=== PATIENT | female | born 1985 | race Caucasian/White ===

== ENCOUNTER 2020-02-07 17:44 | Observation (INO) | payer OTHER ==
[~2020-02-07] VITALS: Ht 160 cm; Wt 78.5 kg
[2020-02-07 18:08] VITALS: BP 113/73
[2020-02-07] MEDS ORDERED: METF-961 PO (18:15)
[2020-02-07] MEDS ORDERED: PREN1TAB80 PO (18:15)
[2020-02-07 19:12] LABS: GLUCOMETER DEV NAME(LOC) 4S.; GLUCOSE,POINT OF CARE 115 MG/DL (70-110)
== END 2020-02-07 19:45 | disposition home or self-care (01) ==
LOC: 4S 17:44
PROVIDERS: ADMIT Obstetrics & Gynecology; ATTEND Obstetrics & Gynecology
DX: O36.8130 Decreased fetal movements, third trimester, not applicable or unspecified (principal); Z3A.35 35 weeks gestation of pregnancy
CPT/HCPCS: 59025; 99219

== ENCOUNTER 2020-03-02 14:00 | Inpatient (IN) | payer OTHER ==
[~2020-03-02] VITALS: Ht 160 cm; Wt 78.9 kg
[~2020-03-02 14:00] MED LIST: 0.9% SODIUM CHLORIDE 10 ML VIAL IVP ONE; EPHEDrine SULFATE 50 MG/ML VIAL IM ONE; FentaNYL CITRATE-PF 100 MCG/2 ML VIAL IVP ONE; KETOROLAC TROMETHAMINE 60 MG/2 ML VIAL IM ONE; METF-961 PO; MORPHINE SULFATE/PF 0.5 MG/ML 10 ML AMP IVP ONE; ONDANSETRON HCL 4 MG/2 ML VIAL IVP ONE; OXYTOCIN 10 UNITS/ML VIAL IM ONE; PREN1TAB80 PO
[2020-03-02] MEDS ORDERED: METF-960 PO (14:07)
[2020-03-02] MEDS ORDERED: CITRIC ACID/SODIUM CITRATE 30 ML SOLUTION UDCUP PO ONE (14:15)
[2020-03-02] MEDS ORDERED: RINGERS SOLUTION,LACTATED 1,000 ML IV ONE (14:15)
[2020-03-02] MEDS ORDERED: METOCLOPRAMIDE HCL 5 MG/ML 2 ML VIAL IVP ONE (14:15)
[2020-03-02 14:29] VITALS: BP 124/81
[2020-03-02 15:12] LABS: COVID AG,FIA SOURCE NASOPHARYNGEAL
[2020-03-02 15:14] LABS: BASOPHILS % (AUTO) 0.6 % (0.0-2.0); EOSINOPHILS % (AUTO) 0.5 % (1.0-6.0); HEMATOCRIT 36.3 % (36-46); LYMPHOCYTES # (AUTO) 1.5 K/uL (1.0-4.8); LYMPHOCYTES % (AUTO) 18.8 % (22.0-44.0); MEAN CORPUSCULAR HEMOGLOBIN 28.8 pg (26.0-34.0); MEAN CORPUSCULAR HGB CONC 33.1 G/dL (31.0-37.0); MEAN CORPUSCULAR VOLUME 87 fL (80-100); MONOCYTES # (AUTO) 0.7 K/uL (0.1-1.0); NEUTROPHILS # (AUTO) 5.9 K/uL (1.8-7.7); NEUTROPHILS % (AUTO) 72.1 % (40.0-70.0); PLATELET COUNT (AUTO) 184 K/uL (150-450); RED BLOOD CELL COUNT(AUTO) 4.17 MIL/uL (4.00-5.20); RED CELL DISTRIBUTION WIDTH 14.1 % (11.5-14.5)
[2020-03-02] MEDS ORDERED: FentaNYL CITRATE-PF 100 MCG/2 ML VIAL IVP PRN ×2 (17:15→18:30)
[2020-03-02] MEDS ORDERED: MEPERIDINE-PF 25 MG/ML VIAL IVP PRN (17:15)
[2020-03-02] MEDS ORDERED: HYDROmorphone 2 MG/ML SYRINGE IVP PRN (17:15)
[2020-03-02] MEDS ORDERED: GUM MASTIC/STORAX/MSAL/ALCOHOL LIQUID 0.67 ML VIAL TP ONE (17:25)
[2020-03-02] MEDS ORDERED: MORPHINE SULFATE 10 MG/ML SYRINGE IVP PRN (18:30)
[2020-03-02] MEDS ORDERED: DiphenhydrAMINE HCL 50 MG/ML VIAL IVP PRN (18:30)
[2020-03-02] MEDS ORDERED: ONDANSETRON HCL 4 MG/2 ML VIAL IVP PRN (18:30)
[2020-03-02] MEDS ORDERED: NALBUPHINE HCL 10 MG/ML VIAL IVP PRN ×2 (18:30)
[2020-03-02] MEDS ORDERED: NALOXONE HCL 0.4 MG/ML VIAL IVP PRN (18:30)
[2020-03-02] MEDS ORDERED: OXYTOCIN 20 UNITS/LACT RINGERS 1,000 ML IV ONE (19:15)
[2020-03-02] MEDS ORDERED: MEASLES/MUMPS/RUBELLA VACCINE, LIVE 0.5 ML/VIAL SQ ONE (19:15)
[2020-03-02] MEDS ORDERED: LANOLIN 7 GM OINTMENT TP PRN (19:15)
[2020-03-02 19:33] LABS: GLUCOMETER DEV NAME(LOC) 4S.; GLUCOSE,POINT OF CARE 72 MG/DL (70-110)
[2020-03-02] MEDS ORDERED: OXYGEN THERAPY IH SCH ×3 (20:00)
[2020-03-02] MEDS: ACETAMINOPHEN 1000 MG/ISO-OSM 100 ML IV SCH (20:39)
[2020-03-02] MEDS: KETOROLAC TROMETHAMINE 30 MG/ML VIAL IVP SCH (23:47)
[2020-03-03] MEDS: RINGERS SOLUTION,LACTATED 1,000 ML IV SCH ×2 (03:03→11:10)
[2020-03-03] MEDS: ACETAMINOPHEN 1000 MG/ISO-OSM 100 ML IV SCH (04:39)
[2020-03-03 05:57] LABS: BASOPHILS % (AUTO) 0.6 % (0.0-2.0); EOSINOPHILS % (AUTO) 0.7 % (1.0-6.0); HEMOGLOBIN 10.2 g/dL (12.0-16.0); LYMPHOCYTES # (AUTO) 1.3 K/uL (1.0-4.8); LYMPHOCYTES % (AUTO) 12.9 % (22.0-44.0); MEAN CORPUSCULAR HEMOGLOBIN 30.6 pg (26.0-34.0); MEAN CORPUSCULAR HGB CONC 35.1 G/dL (31.0-37.0); MEAN CORPUSCULAR VOLUME 87 fL (80-100); MONOCYTES # (AUTO) 0.7 K/uL (0.1-1.0); MONOCYTES % (AUTO) 7.3 % (2.0-9.0); NEUTROPHILS # (AUTO) 7.8 K/uL (1.8-7.7); NEUTROPHILS % (AUTO) 78.5 % (40.0-70.0); PLATELET COUNT (AUTO)-OB 136 K/uL (150-450); RED BLOOD CELL COUNT(AUTO) 3.34 MIL/uL (4.00-5.20)
[2020-03-03] MEDS: KETOROLAC TROMETHAMINE 30 MG/ML VIAL IVP SCH (06:06)
[2020-03-03] MEDS: MAGNESIUM HYDROXIDE SUSPENSION 30 ML UDCUP PO PRN ×2 (11:11→20:57)
[2020-03-03] MEDS: IBUPROFEN 800 MG TABLET PO PRN (18:58)
[2020-03-03] MEDS ORDERED: ACETAMINOPHEN/CODEINE 300-30 MG TABLET PO PRN ×2 (19:15)
[2020-03-04] MEDS: IBUPROFEN 800 MG TABLET PO PRN ×3 (02:30→20:14)
[2020-03-04] MEDS ORDERED: SODIUM PHOS/SODIUM BIPHOS 133 ML ENEMA PR ONE (05:15)
[2020-03-04] MEDS ORDERED: POLYETHYLENE GLYCOL 3350 17 GM PACKET PO ONE (05:15)
[2020-03-04] MEDS: MAGNESIUM HYDROXIDE SUSPENSION 30 ML UDCUP PO PRN ×2 (08:17→20:12)
[2020-03-04] MEDS: OxyCODONE HCL/ACETAMINOPHEN 5-325 MG TABLET PO PRN ×3 (09:13→17:34)
[2020-03-04] MEDS: SIMETHICONE 80 MG CHEWABLE TABLET CHEW SCH (17:34)
[2020-03-04] MEDS: SENNA/DOCUSATE SODIUM 8.6-50 MG TABLET PO SCH (20:12)
[2020-03-04] MEDS ORDERED: POLYETHYLENE GLYCOL 3350 17 GM PACKET PO SCH (21:00)
[2020-03-05] MEDS: SIMETHICONE 80 MG CHEWABLE TABLET CHEW SCH ×2 (01:52→08:55)
[2020-03-05] MEDS: OxyCODONE HCL/ACETAMINOPHEN 5-325 MG TABLET PO PRN ×2 (01:52→12:02)
[2020-03-05] MEDS: IBUPROFEN 800 MG TABLET PO PRN (04:21)
[2020-03-05] MEDS: SENNA/DOCUSATE SODIUM 8.6-50 MG TABLET PO SCH (08:20)
[2020-03-05] MEDS ORDERED: IBUP-2070 PO (13:29)
== END 2020-03-05 14:15 | disposition home or self-care (01) | DRG 788 ==
LOC: OBSVTOIN 14:00 → 4S 14:00
PROVIDERS: ADMIT Obstetrics & Gynecology; ATTEND Obstetrics & Gynecology
PROC: 10D00Z1 Extraction of Products of Conception, Low, Open Approach (ICD-10-PCS; principal; 2020-03-02)
DX: O34.211 Maternal care for low transverse scar from previous cesarean delivery (principal); O69.81X0 Labor and delivery complicated by cord around neck, without compression, not applicable or unspecified; Z3A.39 39 weeks gestation of pregnancy; Z37.0 Single live birth; Z20.828 Contact with and (suspected) exposure to other viral communicable diseases
CPT/HCPCS: 86850; 86900; 86901; 87081; 87426; J0131; J0690; J1885; J2270; J2274; J2405; J2590; J2765; J3010; J3490; J7120